=== PATIENT | male | born 1940 | race African-American/Black ===

== ENCOUNTER 2017-03-25 12:03 | Emergency (ER) | payer MEDICARE, OTHER | END 2017-03-25 18:54 | disposition home or self-care (01) | LOC: ER 12:03 | DX: T14.8 Other injury of unspecified body region (principal); N18.9 Chronic kidney disease, unspecified; J44.9 Chronic obstructive pulmonary disease, unspecified; I12.9 Hypertensive chronic kidney disease with stage 1 through stage 4 chronic kidney disease, or unspecified chronic kidney disease; E11.9 Type 2 diabetes mellitus without complications; G47.30 Sleep apnea, unspecified; Z95.5 Presence of coronary angioplasty implant and graft; Z99.2 Dependence on renal dialysis; Z90.81 Acquired absence of spleen; Z88.1 Allergy status to other antibiotic agents; Z91.040 Latex allergy status; W01.10XA Fall on same level from slipping, tripping and stumbling with subsequent striking against unspecified object, initial encounter | CPT/HCPCS: 71100-RT; 72040; 73502-RT; 93005; 99284 ==